=== PATIENT | male | born 1995 | race African-American/Black ===

== ENCOUNTER 2016-10-02 01:15 | Emergency (ER) | payer MEDICAID ==
[~2016-10-02] VITALS: Ht 170.2 cm; Wt 59.7 kg
[~2016-10-02 01:15] MED LIST: LEVO0.5S3 LEFT EYE
[2016-10-02 01:17] VITALS: BP 117/76; PULSE 79; RESP 16; TEMP 97.6; O2SAT 99
[2016-10-02 01:38] VITALS: BP 117/76; PULSE 79; RESP 18; TEMP 97.6; O2SAT 99
[2016-10-02] MEDS ORDERED: SODIUM CHLOR 0.9% 1000 ML INJ 1,000 ML IV ONE (01:45)
[2016-10-02] MEDS ORDERED: SODIUM CHLORIDE 0.9% FLUSH 10 ML FLUSH IV FLUSH PRN (01:45)
[2016-10-02] MEDS ORDERED: ONDANSETRON HCL 4 MG/2 ML VIAL IVP ONE (01:45)
[2016-10-02 01:49] VITALS: RESP 18; O2SAT 99
== END 2016-10-02 02:13 | disposition left against medical advice (07) ==
LOC: PHED 01:15
DX: R10.31 Right lower quadrant pain (principal)
CPT/HCPCS: 99281

== ENCOUNTER 2017-07-30 23:33 | Emergency (ER) | payer SELFPAY ==
[~2017-07-30] VITALS: Ht 170.2 cm; Wt 55.7 kg
[2017-07-30 23:37] VITALS: BP 128/75; PULSE 65; RESP 16; TEMP 97.4; O2SAT 99
[2017-07-30] MEDS ORDERED: SODIUM CHLOR 0.9% 1000 ML INJ 1,000 ML IV SCH (23:51)
--- NOTE | 2017-07-30 23:56 | PD ---
HPI Chief Complaint: Abdominal Pain Time Seen by Provider: 23:46 Travel History International Travel<30 days: No Contact w/Intl Traveler<30days: No Traveled to known affect area: No History of Present Illness HPI Patient is a 21-year-old male who presents the emergency room complaints of abdominal pain. Patient reports that for the past few days, he has been having epigastric pain after he eats. Patient reports that he has been eating a lot of red sauces, reports that pain today states began after he had chili. Patient reports that pain usually goes away after a few hours, reports that it has been persistent tonight. Patient concerned for possible acid reflux as he does have history of GERD. Patient denies any fever chills, denies any nausea or vomiting. Patient denies any constipation or diarrhea. Denies any radiation of pain. Patient reports that eating spicy foods as well as red sauces makes symptoms worse, he has tried nothing to help improve his symptoms. Denies alcohol abuse PFSH Past Medical History Asthma: Yes Diminished Hearing: No Respiratory: Yes (asthma) Immunizations Current: Yes ?: Not Social History Alcohol Use: No Tobacco Use: Yes Substance Use: No Allergies-Medications (Allergen,Severity, Reaction): Coded Allergies: No Known Allergies (Verified Adverse Reaction, Unknown, 07/30/17) Reported Meds & Prescriptions Reported Meds & Active Scripts Active No Active Prescriptions or Reported Medications Review of Systems General / Constitutional: No: Fever Eyes: No: Visual changes HENT: No: Headaches Cardiovascular: No: Chest Pain or Discomfort Respiratory: No: Shortness of Breath Gastrointestinal: Positive: Abdominal Pain, No: Nausea, Vomiting, Diarrhea, Hematochezia, Constipation Genitourinary: No: Dysuria Musculoskeletal: No: Pain Skin: No Rash Neurologic: No: Weakness Psychiatric: No: Depression Endocrine: No: Polydipsia Hematologic/Lymphatic: No: Easy Bruising Physical Exam Narrative GENERAL: No acute distress SKIN: Focused skin assessment warm/dry. HEAD: Atraumatic. Normocephalic. EYES: Pupils equal and round. No scleral icterus. No injection or drainage. ENT: No nasal bleeding or discharge. Mucous membranes pink and moist. NECK: Trachea midline. No JVD. CARDIOVASCULAR: Regular rate and rhythm. No murmur appreciated. RESPIRATORY: No accessory muscle use. Clear to auscultation. Breath sounds equal bilaterally. GASTROINTESTINAL: Abdomen soft, mild tenderness in the epigastrium with no rebound or guarding, nondistended. Hepatic and splenic margins not palpable. MUSCULOSKELETAL: No obvious deformities. No clubbing. No cyanosis. No edema. NEUROLOGICAL: Awake and alert. No obvious cranial nerve deficits. Motor grossly within normal limits. Normal speech. PSYCHIATRIC: Appropriate mood and affect; insight and judgment normal. Data Data Last Documented VS Vital Signs Date Time Temp Pulse Resp B/P (MAP) Pulse Ox O2 Delivery O2 Flow Rate FiO2 07/31/17 01:01 76 16 118/71 (87) 99 Room Air 07/30/17 23:37 97.4 Orders Orders Complete Blood Count With Diff (07/30/17 23:51) Comprehensive Metabolic Panel (07/30/17 23:51) Lipase (07/30/17 23:51) Urinalysis - C+S If Indicated (07/30/17 23:51) Iv Access Insert/Monitor (07/30/17 23:51) Oximetry (07/30/17 23:51) Sodium Chlor 0.9% 1000 Ml Inj (Ns 1000 M (07/30/17 23:51) Sodium Chloride 0.9% Flush (Ns Flush) (07/31/17 00:00) Al-Mag Hy-Si 40-40-4 Mg/Ml Liq (Mag-Al P (07/31/17 00:00) Lidocaine 2% Viscous (Xylocaine 2% Visco (07/31/17 00:00) Famotidine (Pepcid) (07/31/17 00:00) Labs Laboratory Tests Test 07/30/17 00:00 07/30/17 23:51 White Blood Count 7.1 TH/MM3 Red Blood Count 5.81 MIL/MM3 Hemoglobin 14.8 GM/DL Hematocrit 45.8 % Mean Corpuscular Volume 78.8 FL Mean Corpuscular Hemoglobin 25.5 PG Mean Corpuscular Hemoglobin Concent 32.3 % Red Cell Distribution Width 12.9 % Platelet Count 270 TH/MM3 Mean Platelet Volume 8.7 FL Neutrophils (%) (Auto) 42.6 % Lymphocytes (%) (Auto) 45.9 % Monocytes (%) (Auto) 4.2 % Eosinophils (%) (Auto) 5.3 % Basophils (%) (Auto) 2.0 % Neutrophils # (Auto) 3.0 TH/MM3 Lymphocytes # (Auto) 3.3 TH/MM3 Monocytes # (Auto) 0.3 TH/MM3 Eosinophils # (Auto) 0.4 TH/MM3 Basophils # (Auto) 0.1 TH/MM3 CBC Comment DIFF FINAL Differential Comment Urine Color GRADY Urine Turbidity CLEAR Urine pH 6.0 Urine Specific Wasta 1.025 Urine Protein NEG mg/dL Urine Glucose (UA) NEG mg/dL Urine Ketones NEG mg/dL Urine Occult Blood MOD Urine Nitrite NEG Urine Bilirubin NEG Urine Urobilinogen 0.2 MG/DL Urine Leukocyte Esterase NEG Urine RBC 20-24 /hpf Urine WBC 3-5 /hpf Urine Squamous Epithelial Cells 6-8 /hpf Urine Calcium Oxalate Crystals FEW /hpf Urine Bacteria NONE /hpf Microscopic Urinalysis Comment CULT NOT INDICATED Blood Urea Nitrogen 10 MG/DL Creatinine 1.10 MG/DL Random Glucose 77 MG/DL Total Protein 8.0 GM/DL Albumin 4.0 GM/DL Calcium Level 9.1 MG/DL Alkaline Phosphatase 69 U/L Aspartate Amino Transf (AST/SGOT) 19 U/L Alanine Aminotransferase (ALT/SGPT) 20 U/L Total Bilirubin 0.5 MG/DL Sodium Level 141 MEQ/L Potassium Level 4.5 MEQ/L Chloride Level 106 MEQ/L Carbon Dioxide Level 31.4 MEQ/L Anion Gap 4 MEQ/L Estimat Glomerular Filtration Rate 102 ML/MIN Lipase 116 U/L [facility] Medical Decision Making Medical Screen Exam Complete: Yes Emergency Medical Condition: Yes Medical Record Reviewed: Yes Interpretation(s) Vital Signs Date Time Temp Pulse Resp B/P (MAP) Pulse Ox O2 Delivery O2 Flow Rate FiO2 07/30/17 23:37 97.4 65 16 128/75 (92) 99 Differential Diagnosis GERD, pancreatitis, gastric ulcer, gastritis, gastroenteritis, cholecystitis Narrative Course Patient is a 21-year-old male who presents the emergency room for evaluation of epigastric pain after eating chili tonight. Reports that for the past few nights he has been eating a lot of red sauces which has been exacerbating his symptoms, reports that tonight, pain has been persistent. He is not taking any medications prior to arrival to the emergency room. Patient also reports that he has chronic low back pain, patient is asking for refill on his chronic pain medications. Discussed with patient that I cannot refill his chronic pain medications and that he will need to go see his primary care doctor for further scripts for narcotic pain medications. During the course of the patients emergency department visit, the patients history, examination, and differential diagnosis were reviewed with the patient. The patient was placed on a cardiac rehabilitation program director with oximetry and frequent blood pressure monitoring. The patient had an IV access obtained and blood work sent for analysis. The patient was initially provided IV fluids, Pepcid, GI cocktail The patients laboratory studies were reviewed and remarkable for Laboratory Tests Test 07/30/17 00:00 07/30/17 23:51 White Blood Count 7.1 TH/MM3 (4.0-11.0) Red Blood Count 5.81 MIL/MM3 (4.50-5.90) Hemoglobin 14.8 GM/DL (13.0-17.0) Hematocrit 45.8 % (39.0-51.0) Mean Corpuscular Volume 78.8 FL (80.0-100.0) Mean Corpuscular Hemoglobin 25.5 PG (27.0-34.0) Mean Corpuscular Hemoglobin Concent 32.3 % (32.0-36.0) Red Cell Distribution Width 12.9 % (11.6-17.2) Platelet Count 270 TH/MM3 (150-450) Mean Platelet Volume 8.7 FL (7.0-11.0) Neutrophils (%) (Auto) 42.6 % (16.0-70.0) Lymphocytes (%) (Auto) 45.9 % (9.0-44.0) Monocytes (%) (Auto) 4.2 % (0.0-8.0) Eosinophils (%) (Auto) 5.3 % (0.0-4.0) Basophils (%) (Auto) 2.0 % (0.0-2.0) Neutrophils # (Auto) 3.0 TH/MM3 (1.8-7.7) Lymphocytes # (Auto) 3.3 TH/MM3 (1.0-4.8) Monocytes # (Auto) 0.3 TH/MM3 (0-0.9) Eosinophils # (Auto) 0.4 TH/MM3 (0-0.4) Basophils # (Auto) 0.1 TH/MM3 (0-0.2) CBC Comment DIFF FINAL Differential Comment Urine Color GRADY (YELLW/STRAW) Urine Turbidity CLEAR (CLEAR) Urine pH 6.0 (5.0-8.5) Urine Specific [place]asta 1.025 (1.002-1.035) Urine Protein NEG mg/dL (NEG-TRACE) Urine Glucose (UA) NEG mg/dL (NEG) Urine Ketones NEG mg/dL (NEG) Urine Occult Blood MOD (NEG) Urine Nitrite NEG (NEG) Urine Bilirubin NEG (NEG) Urine Urobilinogen 0.2 MG/DL (LESS THAN Urine Leukocyte Esterase NEG (NEG) Urine RBC 20-24 /hpf (0-3) Urine WBC 3-5 /hpf (0-5) Urine Squamous Epithelial Cells 6-8 /hpf (0-5) Urine Calcium Oxalate Crystals FEW /hpf (NONE) Urine Bacteria NONE /hpf (NONE) Microscopic Urinalysis Comment CULT NOT INDICATED Blood Urea Nitrogen 10 MG/DL (7-18) Creatinine 1.10 MG/DL (0.60-1.30) Random Glucose 77 MG/DL (74-106) Total Protein 8.0 GM/DL (6.4-8.2) Albumin 4.0 GM/DL (3.4-5.0) Calcium Level 9.1 MG/DL (8.5-10.1) Alkaline Phosphatase 69 U/L (45-117) Aspartate Amino Transf (AST/SGOT) 19 U/L (15-37) Alanine Aminotransferase (ALT/SGPT) 20 U/L (12-78) Total Bilirubin 0.5 MG/DL (0.2-1.0) Sodium Level 141 MEQ/L (136-145) Potassium Level 4.5 MEQ/L (3.5-5.1) Chloride Level 106 MEQ/L (98-107) Carbon Dioxide Level 31.4 MEQ/L (21.0-32.0) Anion Gap 4 MEQ/L (5-15) Estimat Glomerular Filtration Rate 102 ML/MIN (>89) Lipase 116 U/L (73-393) Patient reevaluated, patient reports that he is feeling much better at this time. Abdomen is soft, nontender, no peritoneal signs, patient request to be discharged home. I did review all lab work with patient, he will follow-up with his primary care doctor for the hematuria seen on his UA. He does not have flank pain or concerns for kidney stones at this time, abdominal pain purely epigastric. Patient with most likely acid reflux, will start him on omeprazole. Diet was reviewed with patient. Diagnosis Primary Impression: GERD (gastroesophageal reflux disease) Qualified Codes: K21.9 - Gastro-esophageal reflux disease without esophagitis Additional Impression: Hematuria Patient Instructions: General Instructions Additional Instructions: Please avoid spicy foods as well as red sauces, avoid drinking coffee, avoid laying down after meals Please follow up with your primary care doctor in 2-3 days Return to the ER if symptoms worsen or progress Return to the ER as needed Med/Other Pt SpecificInfo: Prescription(s) given Scripts Pantoprazole (Protonix) 40 Mg Tab 40 MG PO DAILY for Reflux, #30 TAB 0 Refills Prov: Melita Pack DO 07/31/17 Disposition: 01 DISCHARGE HOME Condition: Stable Melita Pack DO July 30, 2017 23:56
[2017-07-31] MEDS ORDERED: SODIUM CHLORIDE 0.9% FLUSH 10 ML FLUSH IV FLUSH PRN
[2017-07-31] MEDS ORDERED: FAMOTIDINE 20 MG TAB PO ONE
[2017-07-31] MEDS ORDERED: LIDOCAINE VISCOUS 2% SOLN 15 ML UDC PO ONE
[2017-07-31] MEDS ORDERED: ALUMINUM/MAGNESIUM/SIMETH 30 ML CUP PO ONE
[2017-07-31 00:23] VITALS: RESP 16; O2SAT 100
[2017-07-31 00:25] LABS: BILIRUBIN, URINE NEG (NEG); BLOOD, URINE MOD (NEG); GLUCOSE,URINE NEG (NEG); KETONE, URINE NEG (NEG); NITRITE,URINE NEG (NEG); URINE LEUKOCYTE ESTERASE NEG (NEG)
[2017-07-31 00:27] LABS: BASOPHIL # 0.1 TH/MM3 (0-0.2); EOSINOPHIL # 0.4 TH/MM3 (0-0.4); EOSINOPHIL % 5.3 % (0.0-4.0); HEMATOCRIT 45.8 % (39.0-51.0); HEMOGLOBIN 14.8 GM/DL (13.0-17.0); LYMPH % 45.9 % (9.0-44.0); LYMPHOCYTE # 3.3 TH/MM3 (1.0-4.8); MEAN CELL VOLUME 78.8 FL (80.0-100.0); MEAN CORPUSCULAR HEMOGLOBIN 25.5 PG (27.0-34.0); MEAN CORPUSCULAR HGB CONC 32.3 % (32.0-36.0); MEAN PLATELET VOLUME 8.7 FL (7.0-11.0); MONO % 4.2 % (0.0-8.0); MONOCYTE # 0.3 TH/MM3 (0-0.9); NEUT % 42.6 % (16.0-70.0); PLATELET COUNT 270 TH/MM3 (150-450); RED BLOOD COUNT 5.81 MIL/MM3 (4.50-5.90); RED CELL DISTRIBUTION WIDTH 12.9 % (11.6-17.2); WHITE BLOOD COUNT 7.1 TH/MM3 (4.0-11.0)
[2017-07-31 00:32] LABS: URINE COLOR AMBER (YELLW/STRAW)
[2017-07-31 00:34] LABS: CALCIUM OXALATE CRYSTALS,URINE FEW /hpf
[2017-07-31 00:34] LABS: CHLORIDE 106 MEQ/L (98-107); SODIUM (NA) 141 MEQ/L (136-145)
[2017-07-31 00:38] LABS: BICARBONATE 31.4 MEQ/L (21.0-32.0); BLOOD UREA NITROGEN 10 MG/DL (7-18); CALCIUM 9.1 MG/DL (8.5-10.1); GLUCOSE,RANDOM 77 MG/DL (74-106)
[2017-07-31 00:41] LABS: ALT (GPT) 20 U/L (12-78); AST (GOT) 19 U/L (15-37); GLOMERULAR FILTRATION RATE 102 ML/MIN (>89)
[2017-07-31 00:43] LABS: TOTAL BILIRUBIN ADULT 0.5 MG/DL (0.2-1.0)
[2017-07-31 00:44] LABS: ALKALINE PHOSPHATASE 69 U/L (45-117)
[2017-07-31 01:01] VITALS: BP 118/71; PULSE 76; RESP 16; O2SAT 99
[2017-07-31] MEDS ORDERED: PROT40TA PO (01:06)
== END 2017-07-31 01:34 | disposition home or self-care (01) ==
LOC: PHED 23:33
DX: K21.9 Gastro-esophageal reflux disease without esophagitis (principal); R31.9 Hematuria, unspecified; J45.909 Unspecified asthma, uncomplicated; G89.29 Other chronic pain; M54.5 Low back pain; Z72.0 Tobacco use
CPT/HCPCS: 80053; 81001; 83690; 85025; 96360; 99284; J7030